=== PATIENT | male | born 1955 | race Caucasian/White ===

== ENCOUNTER 2018-07-05 20:57 | Emergency (ER) | payer OTHER, SELFPAY ==
[2018-07-05 21:05] VITALS: BP 140/89; PULSE 78; RESP 18; TEMP 37; O2SAT 100; BMI 26.2
--- NOTE | 2018-07-05 21:10 | DI.RAD.S_ITS ---
PROCEDURE: XR SHOULDER RT MIN 2V INDICATIONS: pain, dec rom TECHNIQUE: 2 views of the shoulder were acquired. COMPARISON: None. FINDINGS: Bones: No fractures or dislocations. Mild degenerative changes are present at the acromioclavicular and glenohumeral joints. No suspicious bony lesions. Visualized ribs appear intact. Soft tissues: No suspicious soft tissue calcifications. IMPRESSION: Mild degenerative change. No acute radiographic findings. If pain persists, repeat study in 5-7 days is recommended to exclude occult fracture. Dictated by: Tanya Garner M.D. on 07/05/2018 at 21:30 Approved by: Tanya Garner M.D. on 07/05/2018 at 21:31
--- NOTE | 2018-07-05 21:19 | ED.UPPEXIN ---
HPI - Extremity Injury (Upper) <CELESTE Braun - Last Filed: 07/05/18 22:01> General Chief Complaint: Extremity Injury, Upper Stated Complaint: right arm/shoulder injury Time Seen by Provider: 07/05/18 21:10 Source: patient and family Mode of arrival: ambulatory Limitations: no limitations History of Present Illness HPI narrative: The patient is a 62-year-old male with history of hip replacement who presents with chief complaint of acute right shoulder pain. He states he started feeling at her 2-3 days ago, then was lifting something this afternoon at about 2:00 pm and felt a pop in his arm above his shoulder. He denies any numbness or tingling. He states it is like his muscle is a ball at the bottom of his upper arm. He states he feels like deandre. He has not taken anything for pain. He denies any falls or trauma. He states that he has not injured this shoulder before. Related Data Previous Rx's Medication Instructions Recorded cyclobenzaprine 10 mg PO TID PRN #30 tab 07/05/18 Allergies Allergy/AdvReac Type Severity Reaction Status Date / Time No Known Drug Allergies Allergy Verified 07/05/18 21:35 Review of Systems <CELESTE Braun - Last Filed: 07/05/18 22:01> Review of Systems GENERAL: Denies chills, fatigue, malaise, fever, sweats. HEENT: Denies sinus pain, ear pain, sore throat, difficulty swallowing, dizziness. RESPIRATORY: Denies dyspnea, cough, wheezing, hemoptysis, sputum. CARDIOVASCULAR: Denies chest pain, palpitations, orthopnea, edema, GASTROINTESTINAL: Denies nausea, vomiting, abdominal pain, diarrhea, constipation, melena. : Denies dysuria, frequency, incontinence, hematuria, urinary retention. MUSCULOSKELETAL: See HPI SKIN: Denies rash, skin lesions, or other NEUROLOGIC: Denies weakness, headache, numbness, change in speech, confusion, seizures, incoordination. PSYCHIATRIC: No concerning psychosocial issues. 12 point review of systems is negative except for those stated above PFSH <ROB Braun - Last Filed: 07/05/18 22:01> Social History Smoking Status: Former smoker Social History Smoking Status: Former smoker Exam <ROB Braun - Last Filed: 07/05/18 22:01> Narrative Exam Narrative: GENERAL: This is a well-nourished, well-developed patient, appears uncomfortable HEAD: Atraumatic. Normocephalic. No temporal or scalp tenderness. EYES: Pupils equal round and reactive. Extraocular motions intact. No scleral icterus. No injection or drainage. ENT: Nose without bleeding, purulent drainage or septal hematoma. Throat without erythema, tonsillar hypertrophy or exudate. Uvula midline. Airway patent. NECK: Trachea midline. No JVD or lymphadenopathy. Supple, nontender, no meningeal signs. CARDIOVASCULAR: Regular rate and rhythm without murmurs, gallops, or rubs. RESPIRATORY: No cough. No increased respiratory effort. No accessory muscle use. EXTREMITIES: Generalized pain to palpation right upper arm. No pain to palpation right shoulder. Biceps is balled up at distal aspect of humerus. Positive radial pulse right hand. Good strength right hand. Patient is able to shrug right shoulder. Unable to abduct adduct flex or extend right shoulder due to pain. Unable to extend right arm past 90? at elbow. BACK: Nontender without deformity or crepitance. No flank tenderness. NEURO: AOx3. SKIN: No rash or erythema. No erythema ecchymosis or rash noted right shoulder. Initial Vital Signs Initial Vital Signs: Vital Signs Temperature 98.6 F 07/05/18 21:05 Pulse Rate 78 07/05/18 21:05 Respiratory Rate 18 07/05/18 21:05 Blood Pressure 140/89 07/05/18 21:05 Pulse Oximetry 100 07/05/18 21:05 <Dru Bennett DO - Last Filed: 07/05/18 22:45> Initial Vital Signs Initial Vital Signs: Vital Signs Temperature 98.6 F 07/05/18 21:05 Pulse Rate 78 07/05/18 21:05 Respiratory Rate 18 07/05/18 21:05 Blood Pressure 140/89 07/05/18 21:05 Pulse Oximetry 100 07/05/18 21:05 Procedures <ROB BraunBC - Last Filed: 07/05/18 22:01> Orthopedic Splinting/Casting Injury #1: Side: right Upper Extremity Injury Location: shoulder Upper Extremity Immobilizer: sling/shoulder immobilizer Post splinting neuro exam: intact Post splinting vascular exam: intact Placed by: Nursing Course <MEENAKSHI BraunP-BC - Last Filed: 07/05/18 22:01> Orders Ordered: ED Orders 07/05/18 21:10 XR shoulder RT min 2V Stat Discontinued Medications Cyclobenzaprine HCl (Flexeril) 10 mg PO NOW ONE Stop: 07/05/18 21:36 Last Admin: 07/05/18 21:43 Dose: 10 mg Cyclobenzaprine HCl (Flexeril 10 Mg Prepack) 1 bottle MISC SEEINSTR ONE Stop: 07/05/18 21:36 Last Admin: 07/05/18 21:43 Dose: 1 bottle Ketorolac Tromethamine (Toradol 10mg Prepack) 1 bottle MISC SEEINSTR ONE Stop: 07/05/18 21:36 Last Admin: 07/05/18 22:00 Dose: 1 bottle Ketorolac Tromethamine (Toradol) 60 mg IM NOW ONE Stop: 07/05/18 21:36 Last Admin: 07/05/18 21:43 Dose: 60 mg Vital Signs - 8 hr 07/05/18 21:05 07/05/18 22:12 Temperature 98.6 F Pulse Rate 78 74 Respiratory Rate 18 16 Blood Pressure 140/89 121/74 Pulse Oximetry 100 95 <Dru Bennett DO - Last Filed: 07/05/18 22:45> Orders Ordered: ED Orders 07/05/18 21:10 XR shoulder RT min 2V Stat Discontinued Medications Cyclobenzaprine HCl (Flexeril) 10 mg PO NOW ONE Stop: 07/05/18 21:36 Last Admin: 07/05/18 21:43 Dose: 10 mg Cyclobenzaprine HCl (Flexeril 10 Mg Prepack) 1 bottle MISC SEEINSTR ONE Stop: 07/05/18 21:36 Last Admin: 07/05/18 21:43 Dose: 1 bottle Ketorolac Tromethamine (Toradol 10mg Prepack) 1 bottle MISC SEEINSTR ONE Stop: 07/05/18 21:36 Last Admin: 07/05/18 22:00 Dose: 1 bottle Ketorolac Tromethamine (Toradol) 60 mg IM NOW ONE Stop: 07/05/18 21:36 Last Admin: 07/05/18 21:43 Dose: 60 mg Vital Signs - 8 hr 07/05/18 21:05 07/05/18 22:12 Temperature 98.6 F Pulse Rate 78 74 Respiratory Rate 18 16 Blood Pressure 140/89 121/74 Pulse Oximetry 100 95 MDM - Extremity Injury (Upper) <CELESTE Braun - Last Filed: 07/05/18 22:01> Imaging Data shoulder xray : My impression: [address] [address] XRay Report Signed Patient: Gray Lora#: [id number] : 8Acct:[id number] Age/Sex: 62 / MDate of Service: 07/05/18 Loc: ED Accession Number: [id number] Procedure: XR shoulder RT min 2V Ordering Provider: Divya Ball PROCEDURE: XR SHOULDER RT MIN 2V INDICATIONS: pain, dec rom TECHNIQUE: 2 views of the shoulder were acquired. COMPARISON: None. FINDINGS: Bones: No fractures or dislocations. Mild degenerative changes are present at the acromioclavicular and glenohumeral joints. No suspicious bony lesions. Visualized ribs appear intact. Soft tissues: No suspicious soft tissue calcifications. IMPRESSION: Mild degenerative change. No acute radiographic findings. If pain persists, repeat study in 5-7 days is recommended to exclude occult fracture. Dictated by: Tanya Garner M.D. on 07/05/2018 at 21:30 Approved by: Tanya Garner M.D. on 07/05/2018 at 21:31 [facility] Narrative Medical decision making narrative: The patient is a 62-year-old male who presents with a chief complaint of right shoulder injury. His x-rays negative for fracture. His exam is consistent with a torn biceps. I have discussed that he needs to follow up with his primary care provider as well as Orthopedics. Encouraged him to call Orthopedics tomorrow. He is neurovascularly intact and felt much improved after sling applied. He is given Flexeril and Toradol. He did not want any Vicodin. Of note he is [facility]. Her Discharge Plan Departure Patient Disposition: Home Clinical Impression: Acute shoulder pain Qualifiers: Laterality: right Qualified Code(s): M25.511 - Pain in right shoulder Discharge Date/Time: 07/05/18 22:13 Interventions: ED Discharge Assessment Last Done: 07/05/18 22:12 Instructions: How to Use a Sling, DI for Shoulder Pain Activity Restrictions/Additional Instructions: Your x-ray shows no fracture today. However given your exam I am concerned that you ruptured your biceps. I have given you prescription of muscle relaxers to help with this. Please follow up with her primary care physician as well as an orthopedist. Please call Orthopedics tomorrow. Please come back to the emergency department for any acute concerns such as chest pain shortness breath or decreased circulation in your hand or passing out. Do not combine the Toradol with any other NSAID such as diclofenac Aleve or naproxen or ibuprofen. Prescriptions: New cyclobenzaprine 10 mg tablet 10 mg PO TID PRN (Reason: muscle spasm) Qty: 30 RF: 0 Referrals: [facility] [Provider Group] [facility] [Provider Group] Stand Alone Forms: Work Release Note <Dru Bennett DO - Last Filed: 07/05/18 22:45> [facility] ED Attending Bello Attestation: I was available for consultation during this patient's emergency department encounter
--- NOTE | 2018-07-05 21:33 | PC.NURSE ---
Bulge noted at right bicep. Patient not moving extremity secondary to extreme pain. Visible muscle spasming in the bicep. The bicep had been sore for a few days and today he was picking up a 5 lb object and felt a severe pain and he felt and heard a pop. Used cold therapy, with little relief.
[2018-07-05] MEDS: KETOROLAC 60 MG/2 ML VIAL IM (21:43)
[2018-07-05] MEDS: CYCLOBENZAPRINE 10 MG PREPACK 1 BOTTLE MISC (21:43)
[2018-07-05] MEDS: CYCLOBENZAPRINE 10 MG TABLET PO (21:43)
[2018-07-05] MEDS: KETOROLAC 10MG PREPACK 1 BOTTLE MISC (22:00)
[2018-07-05 22:12] VITALS: BP 121/74; PULSE 74; RESP 16; O2SAT 95
== END 2018-07-05 22:13 | disposition home or self-care (01) ==
PROVIDERS: Emergency Provider Nurse Practitioner Family
DX: M25.511 Pain in right shoulder (principal)
CPT/HCPCS: 73030; 96372; 99282; 99283; J1885

== ENCOUNTER → 2020-05-08 09:57 | Outpatient (CLI) | payer OTHER, SELFPAY ==
[2020-05-08 11:48] LABS: COVID19 -Nasal RAPID Negative (Negative)
== END ==
PROVIDERS: Visit Provider Physician Assistant
DX: Z20.822 Contact with and (suspected) exposure to COVID-19 (principal)
CPT/HCPCS: 87635

== ENCOUNTER 2020-05-10 08:25 | Day surgery (SDC) | payer OTHER, SELFPAY ==
[2020-05-10] VITALS (7 sets, daily range): BP systolic 120–140; BP diastolic 72–98; PULSE 66–76; RESP 12–18; TEMP 36.6–37.1; O2SAT 95–98; BMI 23.7
--- NOTE | 2020-05-10 | PATH_ITS ---
[facility] Accession Number: [id number] . 01 Material submitted: . PART A: body - TRANSVERSE POLYP PART B: body - POLYP AT 18 CM . 01 Clinical history: . OTHER FECAL ABNORMALITIES . 02 Diagnosis: A. Transverse Colon Polyp, Biopsy: Colonic mucosa with focal mucosal hyperplasia. Negative for dysplasia or malignancy. . B. Colon Polyp at 18 cm, Biopsy: Tubular adenoma. MRV 05/15/2020 1503 Local . 02 Electronically signed: . Josh Hastings MD, PhD, Pathologist NPI- [id number] . 01 Gross description: . A. Received in formalin and labeled with transverse polyp is one fragment of martinez soft tissue measuring 0.9 x 0.7 x 0.2 cm. The tissue is entirely submitted in cassette A1. B. Received in formalin and labeled with polyp at 18 cm is one fragment of martinez soft tissue measuring 0.5 x 0.5 x 0.8 cm. Minute fragments of martinez tissue and possible debris are also observed measuring 0.5 x 0.4 x 0.2 cm in aggregate. The piece of tissue is inked, bisected and entirely submitted in cassette B1. The minute fragments of material are entirely submitted in aggregate in cassette B2. (BJ:[id number]) /MRV 05/12/2020 0939 Local . 02 Pathologist provided ICD-10: D12.6, K63.5 . 02 CPT . 960503, 318603 Performed at: 01 [facility] [address] [facility], [place], [place] [id number] MD Sai Maurer MD Phone: [phone] Performed at: [facility] [place] [address] [place], [place] [id number] MD Liss Bey MD Phone: [phone]
[2020-05-10] MEDS: SODIUM CHLORIDE 0.9% 1,000 ML 100 ML IV (09:23)
--- NOTE | 2020-05-10 10:15 | PM.HP.1 ---
History of Present Illness History of Present Illness Chief complaint: [facility] Patient History Family & Social History Social History: household members spouse Tobacco & Substance use: Smoking Status Former smoker alcohol intake frequency a few times a week Substance Use Type does not use Meds Home Medications and Allergies Home Medications Medication Instructions Recorded Confirmed Type atorvastatin 40 mg PO BEDTIME 05/10/20 05/10/20 History naproxen 500 mg PO BID 05/10/20 05/10/20 History tramadol 50 mg PO QID 05/10/20 05/10/20 History Allergies Allergy/AdvReac Type Severity Reaction Status Date / Time No Known Drug Allergies Allergy Verified 05/10/20 08:55 Review of Systems Review of Systems ROS: Yes All systems reviewed with the patient and are negative except as otherwise documented Exam Vital Signs (past 8 hours): - 05/10/20 09:13 Temperature 98.1 F Pulse Rate 74 Respiratory Rate 16 Blood Pressure 140/98 H Pulse Oximetry 98 Oxygen Delivery Method Room Air Narrative Exam Narrative: Awake alert and oriented x3, pupils equal round reactive to light, oropharynx clear, heart regular rate and rhythm, lungs clear to auscultation bilaterally, abdomen nontender and nondistended, extremities without edema, no gross neurologic deficits noted Assessment & Plan Assessment & Plan narrative: Positive Cologuard test COVID-19 COVID-19 status: Negative
--- NOTE | 2020-05-10 10:42 | PM.OP.ENDO ---
Operative Date/Time/Diagnoses Date of procedure: 05/10/20 Procedure & Clinicians Study performed: Colonoscopy with snare polypectomy Moderate conscious sedation was administered by the endoscopy nurse and supervised by the endoscopist. The following parameters were monitored: Oxygen saturation, heart rate, blood pressure, and response to care. 5mg midazolam and 100mcg fentanyl given. Same procedure as scheduled: Yes Indications: Positive Cologuard. Last colonoscopy was in 2010. Procedure Notes Procedure in detail: Prior to the procedure, history and physical was performed, and patient medications and allergies were reviewed. Preprocedure nursing history and assessment was reviewed. Patient identification and proposed procedure were verified by the physician and nurse in the procedure room. The physical status of the patient was reassessed after the procedure. After informed consent was obtained including risks, benefits, and alternatives, the scope was passed under direct vision. Throughout the procedure, the patient's blood pressure, pulse, and oxygen saturations were monitored continuously. The colonoscope was introduced through the anus and advanced to the cecum as identified by the appendiceal orifice and ileocecal valve. The patient tolerated the procedure well. Bowel prep was deemed adequate to detect polyps greater than 5 mm. OSCAR and perianal examination were unremarkable. Retroflexion in the rectum Notable for grade 1 internal hemorrhoids A 12 mm pedunculated polyp was removed from the Rectosigmoid colon at 18 cm from the anal verge with a hot snare and retrieved A 5 mm sessile polyp was removed from the transverse colon with a cold snare and retrieved Impression: Internal hemorrhoids 12 mm pedunculated polyp removed from the rectosigmoid colon 5 mm sessile polyp removed from the transverse colon Sedation minutes: 23 Complications: other (EBL minimal no complications) Post-procedure Plan for aftercare: Follow-up pathology results Repeat colonoscopy at a date to be determined based on pathology results Resume home medications Resume previous diet Patient has a contact number available for emergencies. The signs and symptoms of potential delayed complications were discussed with the patient. Return to normal activities tomorrow. Written discharge instructions were provided to the patient. Discharge home with escort
[2020-05-10] MEDS: fentaNYL 250 MCG/5 ML INJ IV (10:43)
[2020-05-10] MEDS: MIDAZOLAM 5 MG/5 ML VIAL IV (10:44)
== END 2020-05-10 11:22 | disposition home or self-care (01) ==
PROVIDERS: PCP Family Medicine; Referring Provider Internal Medicine; Visit Provider Internal Medicine
PROC: 0DJD8ZZ Inspection of Lower Intestinal Tract, Via Natural or Artificial Opening Endoscopic (ICD-10-PCS; CPT 45378; principal; 2020-05-10 10:00)
DX: R19.5 Other fecal abnormalities (principal); K64.0 First degree hemorrhoids; D12.6 Benign neoplasm of colon, unspecified
CPT/HCPCS: 45385; J2250; J3010

== ENCOUNTER → 2020-08-03 15:21 | Outpatient (CLI) | payer OTHER, SELFPAY ==
--- NOTE | 2020-08-03 | DI.MRI.S_ITS ---
PROCEDURE: MR LUMBAR SPINE WO CON INDICATIONS: Low back pain TECHNIQUE: Noncontrast sagittal T1 spin echo and T2 fast echo, coronal T2, sagittal STIR, axial T1 and T2 fast spin echo through the lumbar spine. COMPARISON: None FINDINGS: Image quality: Excellent. Alignment and Curvature: No plain films are available for comparison, for numbering purposes. Thus, for the purposes of this examination, 5 lumbar type vertebral bodies will be presumed, as denoted on the montage panel. This should be confirmed and correlated with plain films, prior to any lumbar spinal intervention. Loss of normal lumbar lordosis. Mild grade 1 retrolisthesis of T12 on L1, L1 on L2, L2 on L3, L3 on L4, and L4 on L5. Moderate rightward curvature of the lower lumbar spine. Mild leftward curvature of the lower thoracic spine. Bone Marrow: Marrow is of normal overall signal. No acute vertebral body compression fractures. Spinal Cord: Conus medullaris terminates at the mid L1 level. Visualized cord demonstrates normal signal and size. Paraspinous Soft Tissues: No paravertebral masses. T12-L1: Severe disc height loss and desiccation. Moderate diffuse disc bulge with superimposed right far lateral broad-based protrusion. Mild facet and ligamentum flavum hypertrophy. Mild epidural lipomatosis. Mild canal stenosis. Moderate right and mild left foraminal stenosis. L1-L2: Severe disc height loss and desiccation. Moderate diffuse disc bulge. Mild facet and ligamentum flavum hypertrophy. Mild epidural lipomatosis. Mild canal stenosis. Mild bilateral foraminal stenosis. L2-L3: Moderate disc height loss and desiccation. Mild diffuse disc bulge. Mild facet and ligamentum flavum hypertrophy. Mild epidural lipomatosis. Moderate canal stenosis. Mild bilateral foraminal stenosis. L3-L4: Severe disc height loss and desiccation. Mild diffuse disc bulge/osteophyte with superimposed left far lateral protrusion/osteophyte. Mild facet and ligamentum flavum hypertrophy. Mild epidural lipomatosis. Moderate canal stenosis. Moderate left greater than right foraminal stenosis. L4-L5: Moderate disc height loss and desiccation. Mild diffuse disc bulge. Mild facet and ligamentum flavum hypertrophy. Mild epidural lipomatosis. Severe canal stenosis. Moderate to severe right and mild left foraminal stenosis. Mild right L4 nerve root compression. L5-S1: Moderate disc height loss and desiccation. Mild diffuse disc bulge. Mild facet and ligamentum flavum hypertrophy. Mild canal stenosis. Severe bilateral foraminal stenosis with bilateral L5 nerve root compression. IMPRESSION: 1. Multilevel degenerative disc and facet disease, as well as ligamentum flavum hypertrophy and epidural lipomatosis. 2. Multilevel canal stenoses, worst at L4-L5 where there is severe canal stenosis. 3. Multilevel foraminal stenoses, worst at L4-L5 and L5-S1 where there is associated intraforaminal nerve root compression. Recommend correlation with clinical symptoms to ascertain relevance of these findings. 4. 5 lumbar type vertebral bodies were presumed for the current report. Plain films of the lumbar spine are recommended for confirmation, prior to any lumbar spinal intervention. Dictated by: Jefry Dawn M.D. on 08/03/2020 at 16:12 Approved by: Jefry Dawn M.D. on 08/03/2020 at 16:16
== END ==
PROVIDERS: PCP Family Medicine; Referring Provider Nurse Practitioner Family; Visit Provider Nurse Practitioner Family
DX: M54.5 Low back pain (principal); M51.16 Intervertebral disc disorders with radiculopathy, lumbar region; M47.16 Other spondylosis with myelopathy, lumbar region; R29.898 Other symptoms and signs involving the musculoskeletal system; M48.061 Spinal stenosis, lumbar region without neurogenic claudication; M48.07 Spinal stenosis, lumbosacral region
CPT/HCPCS: 72148

== ENCOUNTER → 2021-01-26 13:16 | Outpatient (CLI) | payer OTHER, SELFPAY ==
--- NOTE | 2021-01-26 | DI.CT.S_ITS ---
PROCEDURE: CT CERVICAL SPINE WO CON INDICATIONS: ARTHRODESIS STATUS TECHNIQUE: Noncontrast 3 mm thick sections acquired from the skull base to the T4 level. Sagittal and coronal reformats were then constructed. For radiation dose reduction, the following was used: automated exposure control, adjustment of mA and/or kV according to patient size. COMPARISON: None. FINDINGS: Image quality: There is artifact associated with the metallic hardware. This examination is somewhat limited by quantum mottle artifact. Bones: No fractures or dislocations. Visualized superior ribs are intact. Extensive postoperative hardware is seen, with bilateral pedicle screws posteriorly from C2 through T1. The screws at the C3 level partially involve the associated facet joints and the left-sided screw at C4 also partially involves the associated facet joint. The screws otherwise appear well placed. Vertical fixation rods are seen. No findings of hardware failure or hardware loosening are seen. There has been removal of portions of the posterior elements. Bone grafting material is noted. Degenerative changes are seen, with moderate to severe disc space narrowing seen at C4-C5, C5-C6, and C6-C7. Partially bridging anterior osteophytes are seen C5 through C7. Focal degenerative change is seen involving the C1-C2 interface anteriorly. Milder degenerative changes are seen elsewhere. Soft tissues: Prevertebral soft tissues are normal in thickness. No paravertebral hematomas. No apical pneumothoraces. IMPRESSION: Extensive postoperative fixation hardware seen posteriorly, without findings of failure or loosening. Dictated by: Gautam Hill M.D. on 01/26/2021 at 12:43 Approved by: Gautam Hill M.D. on 01/26/2021 at 12:45
== END ==
PROVIDERS: PCP Family Medicine
DX: M47.12 Other spondylosis with myelopathy, cervical region (principal); Z98.1 Arthrodesis status
CPT/HCPCS: 72125

== ENCOUNTER → 2021-05-01 08:38 | Outpatient (CLI) | payer OTHER, SELFPAY ==
--- NOTE | 2021-05-01 08:41 | DI.CT.S_ITS ---
PROCEDURE: CT CERVICAL SPINE WO CON INDICATIONS: Other spondylosis with myelopathy, cervical region TECHNIQUE: Noncontrast 3 mm thick sections acquired from the skull base to the T4 level. Sagittal and coronal reformats were then constructed. For radiation dose reduction, the following was used: automated exposure control, adjustment of mA and/or kV according to patient size. COMPARISON: None. FINDINGS: Postsurgical changes of the C2-T1 posterior fixation by means of bilateral rods and pedicle screws. The hardware is intact with no evidence of hardware fracture/failure. There is no abnormal lucency surrounding the hardware to indicate loosening. Laminectomies at the operative levels provide wide spinal canal decompression. No evidence of residual/recurrent spinal canal stenosis. Varying degrees of mild to moderate neural foraminal narrowing are similar to the prior study dated 01/26/2021. There is no suspicious lytic or blastic osseous lesion. Normal cervical spine vertebral body height and alignment. IMPRESSION: Postsurgical changes of C2-T1 posterior fixation with no evidence of an acute complicating hardware feature. Wide decompression of the spinal canal by posterior laminectomies at the operative levels. Dictated by: Franklin Neumann M.D. on 05/01/2021 at 10:57 Approved by: Franklin Neumann M.D. on 05/01/2021 at 11:23
== END ==
PROVIDERS: PCP Family Medicine; Referring Provider Physician Assistant; Visit Provider Physician Assistant
DX: M47.12 Other spondylosis with myelopathy, cervical region (principal)
CPT/HCPCS: 72125

== ENCOUNTER → 2021-08-29 13:29 | Outpatient (CLI) | payer OTHER, SELFPAY ==
[2021-08-29 14:37] LABS: BUN Creatinine Ratio 24.3 (6-22); Blood Urea Nitrogen 18 mg/dL (9-20); Calcium 9.3 mg/dL (8.4-10.2); Carbon Dioxide 30 mmol/L (22-32); Chloride 103 mmol/L (98-107); Estimated Glomerular Filt Rate > 60 mL/min (>60); Glucose 91 mg/dL (80-110); HEMOLYSIS < 15 (0-50); Potassium 4.2 mmol/L (3.4-5.1); Sodium 140 mmol/L (137-145)
== END ==
PROVIDERS: PCP Family Medicine; Referring Provider Urology; Visit Provider Urology
DX: N31.2 Flaccid neuropathic bladder, not elsewhere classified (principal)
CPT/HCPCS: 36415; 80048

== ENCOUNTER → 2021-08-31 07:44 | Outpatient (CLI) | payer OTHER, SELFPAY ==
--- NOTE | 2021-08-31 | DI.US.S_ITS ---
PROCEDURE: US RENAL COMPLETE INDICATIONS: flaccid neuropathic bladder TECHNIQUE: Real-time scanning was performed of the kidneys and bladder, with image documentation. COMPARISON: None. FINDINGS: Kidneys: Kidneys are normal in size. Right kidney measures 11.0 cm long; left kidney measures 9.9 cm long. Right renal cortical thickness is 1.7 cm; left renal cortical thickness is 1.4 cm. Renal cortical echotexture is normal. No hydronephrosis or nephrolithiasis. No suspicious solid mass lesions. There is a probable midpole left renal cyst which measures 1.3 cm in diameter. Bladder: Pre-void bladder volume is 619 mL. Post-void residual is 0 mL. The patient voided using a self administered catheter. Miscellaneous: No free pelvic fluid. IMPRESSION: 1. No hydronephrosis. No post void residual after self catheterization. Dictated by: Tanya Garner M.D. on 08/31/2021 at 10:14 Approved by: Tanya Garner M.D. on 08/31/2021 at 10:16
== END ==
PROVIDERS: PCP Family Medicine; Referring Provider Urology; Visit Provider Urology
DX: N31.2 Flaccid neuropathic bladder, not elsewhere classified (principal)
CPT/HCPCS: 76770